=== PATIENT | male | born 1955 | race Two or more races ===

== ENCOUNTER 2019-12-13 13:20 | Inpatient (IN) | payer OTHER ==
[~2019-12-13] VITALS: Ht 167.6 cm; Wt 81.3 kg
[2019-12-13] MEDS ORDERED: SODIUM CHLORIDE 0.9% 1,000 ML IVB ONE (14:05)
[2019-12-13] MEDS ORDERED: ONDANSETRON HCL 4 MG/2 ML VIAL IV ONE (14:15)
[2019-12-13] MEDS ORDERED: MORPHINE SULFATE 4 MG/ML SYR/VIAL IV ONE (14:15)
[2019-12-13 14:25] LABS: Basophils # (auto) 0 uL; Basophils % (auto) 0.8 % (0.0-2.0); Eosinophils # (auto) 0.1 uL; Eosinophils % (auto) 2.3 % (0.0-7.0); Hematocrit 42.9 % (41.0-53.0); Hemoglobin 14.8 g/dL (13.5-17.5); Lymphocytes % (auto) 17.9 % (10.0-50.0); Mean Corpuscular Hemoglobin 30.9 pg (28.0-32.0); Mean Corpuscular Hgb Conc. 34.6 g/dL (32.0-36.0); Mean Corpuscular Volume 89.5 fL (80.0-100.0); Monocytes # (auto) 0.4 uL; Monocytes % (auto) 6.3 % (0.0-12.0); Neutrophils # (auto) 4.2 uL; Neutrophils % (auto) 72.7 % (37.0-80.0); Nucleated Red Blood Cells % 0.1 %; Platelet Count (auto) 157 10^3/uL (140-450); Red Blood Cells 4.79 10^6/uL (4.5-5.90); Red Cell Distribution Width 13.2 % (11.8-14.3); White Blood Cell 5.7 10^3/uL (4.4-10.8)
[2019-12-13 14:47] LABS: Albumin 3.3 g/dL (3.4-5.0); Anion Gap 1 (5-15); Blood Urea Nitrogen 19 mg/dL (7-18); Calcium 8.6 mg/dL (8.5-10.1); Carbon Dioxide 29 mmol/L (21-32); Chloride 106 mmol/L (98-107); Magnesium 2.5 mg/dL (1.6-2.6); Potassium 4.7 mmol/L (3.5-5.1); Sodium 136 mmol/L (136-145)
[2019-12-13 14:53] LABS: Alanine Aminotransferase 40 U/L (16-61); Alkaline Phosphatase 91 U/L (45-117); Aspartate Aminotransferase 19 U/L (15-37); BUN/Creatinine Ratio 17.3; Bilirubin, Total 0.4 mg/dL (0.2-1.0); GFR African American 87 mL/min; GFR Non-African American 72 mL/min; Total Protein 7.3 g/dL (6.4-8.2)
[2019-12-13 14:59] LABS: Glucose 405 mg/dL (74-106)
[2019-12-13] MEDS ORDERED: InsuLIN REG 1unit/0.01ml Soln (100units/ml) IV ONE (16:00)
[2019-12-13] MEDS ORDERED: NITROGLYCERIN 0.4 MG SL TAB SL PRN (16:45)
[2019-12-13] MEDS ORDERED: DEXTROSE (50%) 50ML SYRG IV PRN (16:45)
[2019-12-13] MEDS ORDERED: MORPHINE SULF INJ 2 MG/ML SYRINGE 1ML IV PRN (16:45)
[2019-12-13] MEDS ORDERED: SOD CHL 0.45% 1,000 ML IV SCH (17:00)
[2019-12-13] MEDS: ACCU-CHEK COMFORT CURVE STRIP VI SCH (17:23)
[2019-12-13] MEDS: InsuLIN REG 1unit/0.01ml Soln (100units/ml) SC SCH (17:23)
[2019-12-13] MEDS: SOD CHL 0.45% 1,000 ML IV SCH (19:41)
--- NOTE | 2019-12-13 20:00 | NUR ---
Telemetry admit from KIERA OROZCO admitted to Telemetry unit after SBAR received. Patient oriented to primary RN, unit, room, bed, and unit policies regarding patient care and visiting hours. Patient now on continuous telemetry monitoring, tele box #. Patient placed on bedside oxygen, weighed by bed scale and encouraged to call if they need something. All questions and concerns addressed, patient verbalized understanding. Assumed care of patient. No S/S of distress/SOB or pain. Bed locked in lowest position and bed rails x2. Call light within reach.
[2019-12-13 22:00] VITALS: BP 129/76
[2019-12-14] MEDS: ACCU-CHEK COMFORT CURVE STRIP VI SCH ×5 (00:33→22:38)
[2019-12-14 05:00] VITALS: BP 143/77
[2019-12-14] MEDS: InsuLIN REG 1unit/0.01ml Soln (100units/ml) SC SCH ×5 (06:00→22:38)
[2019-12-14] MEDS: SOD CHL 0.45% 1,000 ML IV SCH ×2 (06:18→14:32)
--- NOTE | 2019-12-14 06:31 | NUR ---
Insulin medication held d/t NPO status for procedure scheduled today
--- NOTE | 2019-12-14 07:30 | NUR ---
RECEIVED REPORT FROM NIGHT NURSE. PATIENT RESTING IN BED, SHACKLES TO BILATERAL ANKLES, HANDCUFF TO RIGHT WRIST. NO NOTED REDNESS AROUND WRIST OR ANKLES. GUARDS AT BEDSIDE. NO DISTRESS NOTED, WILL CONTINUE TO MONITOR.
[2019-12-14] MEDS ORDERED: ADENOSINE 67 MG in GIVE UN-DILUTED 0 ML IV STA (08:26)
[2019-12-14 09:00] VITALS: BP 146/91
[2019-12-14] MEDS ORDERED: LISINOPRIL 10 MG TAB PO ONE (10:00)
[2019-12-14] MEDS ORDERED: METOPROLOL TARTRATE 25 MG TAB PO ONE (10:00)
[2019-12-14] MEDS ORDERED: ATORVASTATIN 20 MG TAB PO ONE (10:00)
[2019-12-14] MEDS ORDERED: ASPirin 81 mg TAB PO ONE (10:00)
[2019-12-14] MEDS ORDERED: ENOXAPARIN SOD 40 MG/0.4 ML SYRINGE SC ONE (10:00)
[2019-12-14 13:00] VITALS: BP 136/72
[2019-12-14 17:00] VITALS: BP 137/83
--- NOTE | 2019-12-14 17:45 | NUR ---
DOCTOR ABIGAIL AT BEDSIDE.
--- NOTE | 2019-12-14 19:20 | NUR ---
Opening Shift Note Assumed care of patient. Patient is awake and alert with guards at bedside. Handcuffs in place with no s/s of skin impairment. No S/S of distress/SOB or pain. Instructed on POC and to call for assist PRN, will continue to monitor for changes Q1hr and PRN. Bed locked in lowest position and bed rails up x2. Call light within reach.
[2019-12-14 21:00] VITALS: BP 143/81
[2019-12-15] MEDS: SOD CHL 0.45% 1,000 ML IV SCH ×3 (02:00→22:21)
[2019-12-15 05:56] VITALS: BP 126/76
[2019-12-15] MEDS: InsuLIN REG 1unit/0.01ml Soln (100units/ml) SC SCH ×3 (06:00→17:58)
[2019-12-15] MEDS: ACCU-CHEK COMFORT CURVE STRIP VI SCH ×3 (06:00→17:53)
--- NOTE | 2019-12-15 07:20 | NUR ---
Opening Shift Note Report received and rounding completed. Patient observed resting in bed without s/s of distress noted. Guards at bedside. Will return hourly to monitor patient.
[2019-12-15 09:00] VITALS: BP 152/88
--- NOTE | 2019-12-15 10:15 | NUR ---
Dental Assistant Instructor Dr. Briana Diego to bedside discussing plan of care including angiogram tomorrow, NPO p MN, patient may shower, and cardiac home meds okay to be restarted.
[2019-12-15] MEDS ORDERED: CLOPIDOGREL 300 MG TAB PO ONE (10:30)
[2019-12-15] MEDS ORDERED: ASPirin 81 mg TAB PO ONE (10:30)
[2019-12-15 11:23] LABS: INR 1.02 (0.9-1.15)
[2019-12-15 13:00] VITALS: BP 133/74
[2019-12-15] MEDS ORDERED: ASPI-404 PO (15:57)
[2019-12-15] MEDS ORDERED: POM (15:57)
[2019-12-15] MEDS ORDERED: CARV3.1240 PO (15:57)
[2019-12-15] MEDS ORDERED: METF-912 PO (15:57)
[2019-12-15] MEDS ORDERED: ATO40T PO (15:57)
[2019-12-15] MEDS ORDERED: LISI10TA6 PO (15:57)
[2019-12-15] MEDS ORDERED: DULO20CA PO (15:57)
[2019-12-15 17:00] VITALS: BP 136/69
--- NOTE | 2019-12-15 19:35 | NUR ---
Opening Shift Note Report received from day shift RN. Assumed care of patient. Patient is awake and A&O x4 with guards at bedside. Handcuffs in place with no s/s of skin impairment noted. No S/S of distress/SOB noted and patient denies pain at this time. Bed locked in lowest position and bed rails up x2. Call light within reach. Instructed on POC and to call for assist PRN, will continue to monitor for changes Q1hr and PRN.
[2019-12-15 22:00] VITALS: BP 139/74
[2019-12-15] MEDS: CARVEDILOL 3.125 MG TAB PO SCH (22:00)
[2019-12-15] MEDS: ATORVASTATIN 20 MG TAB PO SCH (22:22)
--- NOTE | 2019-12-16 00:30 | NUR ---
UA collected and sent.
[2019-12-16] MEDS: ACCU-CHEK COMFORT CURVE STRIP VI SCH ×5 (00:36→23:52)
[2019-12-16 01:34] LABS: Urine Bacteria NONE SEEN /hpf (None Seen); Urine Blood Negative /uL (Negative); Urine Specific Gravity 1.012 (1.001-1.035); Urine WBC 1 /hpf (0 - 3)
[2019-12-16 05:42] VITALS: BP 136/80
[2019-12-16] MEDS: InsuLIN REG 1unit/0.01ml Soln (100units/ml) SC SCH ×5 (05:58→23:52)
[2019-12-16] MEDS ORDERED: LIDOCAINE 2%HCL (LOCAL ANESTH.) INJ 20ML MDV ONE ×2 (08:14→10:33)
[2019-12-16] MEDS ORDERED: IOHEXOL 350 MG/ML 100ML IJ ONE ×2 (08:14→10:49)
--- NOTE | 2019-12-16 08:32 | NUR ---
PT TAKEN TO TRANSIT SPECIALIST VIA BED. 2 GUARDS PRESENT. PT AOX4. DENIES PAIN.NO DISTRESS NOTED.
--- NOTE | 2019-12-16 09:15 | NUR ---
patient in procedure for 0900 vitals
[2019-12-16] MEDS ORDERED: MIDAZOLAM HCL 1MG/1ML-2 ML VIAL ONE (10:40)
[2019-12-16] MEDS ORDERED: fentaNYL CITRATE 100 MCG/2 ML VL ONE (10:40)
[2019-12-16] MEDS ORDERED: ANGIOMAX 250 MG VIAL IV ONE (10:40)
[2019-12-16] MEDS ORDERED: SODIUM CHL 0.9% 0 ML ONE (10:41)
[2019-12-16] MEDS: CARVEDILOL 3.125 MG TAB PO SCH ×2 (14:06→21:54)
[2019-12-16] MEDS: ASPirin 81 mg TAB PO SCH (14:06)
[2019-12-16] MEDS: LISINOPRIL 10 MG TAB PO SCH (14:07)
[2019-12-16] MEDS: CLOPIDOGREL BISULFATE 75 MG TAB PO SCH (14:07)
[2019-12-16] MEDS: SOD CHL 0.45% 1,000 ML IV SCH ×2 (14:08→18:00)
[2019-12-16 17:00] VITALS: BP 123/57
--- NOTE | 2019-12-16 19:20 | NUR ---
Opening Shift Note Report received from day shift RN. Assumed care of patient. Patient is awake and A&O x4 with guards at bedside. Handcuffs in place with no s/s of skin impairment noted. No S/S of distress/SOB noted and patient denies pain at this time. Right groin dressing C/D/I, site soft to touch with no s/s of hematoma formation. Pulses palpable and motor and sensation intact in lower extremities bilaterally. Bed locked in lowest position and bed rails up x2. Call light within reach. Instructed on POC and to call for assist PRN, will continue to monitor for changes Q1hr and PRN
[2019-12-16] MEDS: ATORVASTATIN 20 MG TAB PO SCH (21:54)
[2019-12-16 22:00] VITALS: BP 107/68
[2019-12-17 05:00] VITALS: BP 104/59
[2019-12-17] MEDS: ACCU-CHEK COMFORT CURVE STRIP VI SCH ×3 (05:43→18:22)
[2019-12-17] MEDS: InsuLIN REG 1unit/0.01ml Soln (100units/ml) SC SCH ×3 (05:43→18:22)
--- NOTE | 2019-12-17 07:30 | NUR ---
RECEIVED REPORT FROM NIGHT NURSE. PATIENT RESTING IN BED, NO DISTRESS NOTED. BREATHING EVEN AND UNLABORED. SHACKLES TO BILATERAL ANKLES, HANDCUFF TO RIGHT WRIST, NO NOTED REDNESS TO ANKLES OR WRIST. GUARDS AT BEDSIDE. WILL CONTINUE TO MONITOR.
[2019-12-17 09:00] VITALS: BP 101/57
[2019-12-17] MEDS: ASPirin 81 mg TAB PO SCH (09:54)
[2019-12-17] MEDS: CLOPIDOGREL BISULFATE 75 MG TAB PO SCH (09:55)
[2019-12-17] MEDS: LISINOPRIL 10 MG TAB PO SCH (11:53)
[2019-12-17] MEDS: CARVEDILOL 3.125 MG TAB PO SCH ×2 (11:53→22:39)
[2019-12-17 13:00] VITALS: BP 132/73
[2019-12-17 17:00] VITALS: BP 118/68
[2019-12-17] MEDS: ATORVASTATIN 20 MG TAB PO SCH (22:39)
[2019-12-17 23:51] VITALS: BP 110/65
[2019-12-18] MEDS: ACCU-CHEK COMFORT CURVE STRIP VI SCH ×4 (00:26→18:07)
[2019-12-18] MEDS: InsuLIN REG 1unit/0.01ml Soln (100units/ml) SC SCH ×4 (00:26→18:07)
[2019-12-18 05:22] VITALS: BP 118/69
--- NOTE | 2019-12-18 07:14 | NUR ---
Opening Shift Note Assumed care of patient, awake and alert. No S/S of distress/SOB or pain. Insructed on POC and to callfor assist PRN, will continue to monitor for changes Q1hr and PRN.
--- NOTE | 2019-12-18 08:51 | NUR ---
MD CALVILLO CARDIAC SURGEON ROUNDED ON PATIENT FEELS HE NEEDS THE SURGERY BUT IS A HIGHER ACUITY THAN THIS HOSPITAL HE STATED HE WILL NOTIFY MD JUNIOR AND MD HAYES
[2019-12-18] MEDS: ASPirin 81 mg TAB PO SCH (08:57)
[2019-12-18] MEDS: CARVEDILOL 3.125 MG TAB PO SCH ×2 (08:58→22:00)
[2019-12-18] MEDS: LISINOPRIL 10 MG TAB PO SCH (08:58)
[2019-12-18] MEDS: ENOXAPARIN SOD 40 MG/0.4 ML SYRINGE SC SCH (08:59)
[2019-12-18 09:00] VITALS: BP 135/77
[2019-12-18 13:00] VITALS: BP 110/64
--- NOTE | 2019-12-18 14:31 | NUR ---
MD Briana JUNIOR ROUNDED ON PATIENT HE AGREES WITH TRANSFER TO A HIGHER LEVEL OF CARE
--- NOTE | 2019-12-18 15:58 | NUR ---
NUTRITION ASSESSMENT NOTES Please refer to link notes of nutrition screen form filed under the intervention section of the plan of care for further details. Est. Needs: 1650 kcal to 2050 kcal (20-25 kcal/kgBW), 65 gms to 81 gms pro (0.8-1.0 gms/kgBW). Will continue to monitor pertinent labs and reassess nutrient need prn Thank you. Addendum: 12/18/19 at [address] Amended: Links added.
[2019-12-18 16:57] VITALS: BP 121/81
--- NOTE | 2019-12-18 19:30 | NUR ---
Opening Shift Note Assumed care of patient, awake and alert. No S/S of distress/SOB or pain.Stateless speaking. Able to make needs known. Instructed on POC and to call for assist PRN, will continue to monitor for changes Q1hr and PRN
[2019-12-18 20:00] VITALS: BP 110/64
[2019-12-18 22:00] VITALS: BP 128/72
[2019-12-18] MEDS: ATORVASTATIN 20 MG TAB PO SCH (22:00)
[2019-12-19 05:12] VITALS: BP 109/59
[2019-12-19] MEDS: InsuLIN REG 1unit/0.01ml Soln (100units/ml) SC SCH ×4 (06:00→18:17)
[2019-12-19] MEDS: ACCU-CHEK COMFORT CURVE STRIP VI SCH ×4 (06:14→18:16)
--- NOTE | 2019-12-19 07:30 | NUR ---
Opening Shift Note Assumed care of patient, who is alert and oriented x4. No S/S of distress/SOB or pain. Dressing to the right groin is clean, dry and intact with no hematoma or tenderness noted. IV is patent and intact. Bed is low, locked with 2x side rails up. Call light within reach. Instructed on POC and to call for assist PRN, will continue to monitor for changes Q1hr and PRN.
[2019-12-19 09:00] VITALS: BP 119/70
[2019-12-19] MEDS: CARVEDILOL 3.125 MG TAB PO SCH ×2 (09:46→22:54)
[2019-12-19] MEDS: ASPirin 81 mg TAB PO SCH (09:46)
[2019-12-19] MEDS: LISINOPRIL 10 MG TAB PO SCH (09:47)
[2019-12-19] MEDS: ENOXAPARIN SOD 40 MG/0.4 ML SYRINGE SC SCH (09:47)
[2019-12-19 13:00] VITALS: BP 130/70
--- NOTE | 2019-12-19 14:29 | NUR ---
I called [facility] [phone] and left message for house builder asking about this transfer request.
--- NOTE | 2019-12-19 14:55 | NUR ---
Dr. Haleigh Ricardo, physician from the skilled nursing facility called and asked for update on patient's status. I let him know that this patient has a transfer to [facility] pending (see social service note). He stated if this nurse or oncoming nurse needed anything to please call him at
[2019-12-19 17:00] VITALS: BP 136/73
--- NOTE | 2019-12-19 19:00 | NUR ---
OPENING NOTE- NOC SHIFT PATIENT IS ALERT AND ORIENTED. NO S/SX OF DISTRESS, SOB OR PAIN. PATIENT IS AN INMATE, 2 GUARDS AT BEDSIDE. BED IS LOCKED AT LOWEST, BED RAILS UP X2 AND HEAD OF BED IS UP >30 DEGREES FOR SAFETY PRECAUTIONS. BEDSIDE TABLE, CALL LIGHT WITHIN REACH. PATIENT HAS SHACKLES TO BOTH ANKLES AND LEFT WRIST TO BED. NO REDNESS ON SKIN AT SHACKLE SITES. WILL CONTINUE TO MONITOR Q1H AND PRN. PATIENT IS REQUESTING SHOWER. DR HOUSE AWARE AND AGREES OK TO SHOWER. WILL PROVIDE MATERIALS NEEDED AND COVER IV SITE.
--- NOTE | 2019-12-19 20:36 | NUR ---
PATIENT SHOWERING TELE BOX OFF AND IV WRAPPED PROPERLY FOR SHOWER. TELE MONITOR TECHS AWARE THAT PATIENT IS OFF TELE FOR SHOWER.
[2019-12-19 22:00] VITALS: BP 151/86
[2019-12-19] MEDS: ATORVASTATIN 20 MG TAB PO SCH (22:54)
[2019-12-20] MEDS: ACCU-CHEK COMFORT CURVE STRIP VI SCH ×4 (00:55→18:00)
[2019-12-20] MEDS: InsuLIN REG 1unit/0.01ml Soln (100units/ml) SC SCH ×4 (00:55→18:05)
[2019-12-20 05:00] VITALS: BP 108/73
--- NOTE | 2019-12-20 07:32 | NUR ---
ENDORSED PATIENT CARE TO DAY SHIFT NURSE EAN REEDER. NO S/SX OF DISTRESS OR SOB.
--- NOTE | 2019-12-20 08:00 | NUR ---
Opening Shift Note Assumed care of patient, awake and alert. No S/S of distress/SOB or pain. Awaiting bed availability at [facility]. Instructed on POC and to call for assist PRN, will continue to monitor for changes Q1hr and PRN.
--- NOTE | 2019-12-20 08:25 | NUR ---
I called [facility] Director Of Quality Elyssa [phone] and left a message asking for assistance with the transfer of this patient to [facility].
--- NOTE | 2019-12-20 08:48 | NUR ---
I called [facility] [phone] and spoke with scalehouse attendant Edgardo, she is aware of the need to transfer this patient and that Dr. Alejandro is accepting. Faxed requested clinical information to her [phone]-she will give me a call back regarding bed availability. I let her know that I had contacted Elyssa at [facility] and was waiting for a return phone call.
[2019-12-20 09:00] VITALS: BP 139/82
[2019-12-20] MEDS: CARVEDILOL 3.125 MG TAB PO SCH ×2 (10:00→21:45)
[2019-12-20] MEDS: ASPirin 81 mg TAB PO SCH (10:05)
[2019-12-20] MEDS: LISINOPRIL 10 MG TAB PO SCH (10:06)
[2019-12-20] MEDS: ENOXAPARIN SOD 40 MG/0.4 ML SYRINGE SC SCH (10:06)
[2019-12-20 13:00] VITALS: BP 114/68
--- NOTE | 2019-12-20 13:24 | NUR ---
I called [facility] Pole Maker Elyssa (no return call from previous message I left)[phone]-left a second message asking for assistance in transferring this patient to [facility].
--- NOTE | 2019-12-20 14:57 | NUR ---
I called the [facility] and spoke with Dr. Payne [phone] regarding the transfer to [facility]. Per Dr. Payne, when [facility] has a bed, the nurse here will notify the guards at the bedside and those guards will set up transportation.
[2019-12-20 17:00] VITALS: BP 133/72
--- NOTE | 2019-12-20 19:00 | NUR ---
OPENING NOTE- NOC SHIFT PATIENT IS ALERT AND ORIENTED. NO S/SX OF DISTRESS, SOB OR PAIN. PATIENT IS AN INMATE, 2 GUARDS AT BEDSIDE. BED IS LOCKED AT LOWEST, BED RAILS UP X2 AND HEAD OF BED IS UP >30 DEGREES FOR SAFETY PRECAUTIONS. BEDSIDE TABLE, CALL LIGHT WITHIN REACH. PATIENT HAS SHACKLES TO BOTH ANKLES AND LEFT WRIST TO BED. NO REDNESS ON SKIN AT SHACKLE SITES. WILL CONTINUE TO MONITOR Q1H AND PRN.
[2019-12-20] MEDS: ATORVASTATIN 20 MG TAB PO SCH (21:45)
[2019-12-20 22:00] VITALS: BP 135/81
[2019-12-21] MEDS: ACCU-CHEK COMFORT CURVE STRIP VI SCH ×4 (00:35→17:36)
[2019-12-21] MEDS: InsuLIN REG 1unit/0.01ml Soln (100units/ml) SC SCH ×4 (00:35→17:36)
[2019-12-21 05:00] VITALS: BP 127/69
--- NOTE | 2019-12-21 06:45 | NUR ---
CLOSING NOTE- NOC SHIFT PATIENT IS COMFORTABLE IN BED. NO S/SX OF DISTRESS OR SOB. PATIENT DENIES PAIN AT THIS TIME. WILL ENDORSE CARE TO DAY SHIFT RN.
--- NOTE | 2019-12-21 08:00 | NUR ---
Opening Shift Note Assumed care of patient, awake and alert. No S/S of distress/SOB or pain. Still for transfer to [facility] as soon as bed is available. Instructed on POC and to call for assist PRN, will continue to monitor for changes Q1hr and PRN.
[2019-12-21 08:46] VITALS: BP 118/66
[2019-12-21] MEDS: ENOXAPARIN SOD 40 MG/0.4 ML SYRINGE SC SCH (09:34)
[2019-12-21] MEDS: LISINOPRIL 10 MG TAB PO SCH (09:35)
[2019-12-21] MEDS: ASPirin 81 mg TAB PO SCH (09:35)
[2019-12-21] MEDS: CARVEDILOL 3.125 MG TAB PO SCH ×2 (09:37→21:41)
[2019-12-21 12:18] VITALS: BP 116/64
--- NOTE | 2019-12-21 14:32 | NUR ---
1430 Called [facility] [phone] and left message for hotel houseman asking for an update on the status of the transfer for this patient/bed availability.
[2019-12-21 17:29] VITALS: BP 111/66
--- NOTE | 2019-12-21 19:30 | NUR ---
OPENING SHIFT NOTE Assumed care of patient, awake and alert x 4. Guards noted at the bedside. Patient denies pain or shortness of breath at this time. Instructed on plan of care and to call for assistance as needed, patient verbalized understanding. Bed is locked in lowest position, side rails x 2 are up, call light is within reach, and bed alarm is on.
[2019-12-21] MEDS: ATORVASTATIN 20 MG TAB PO SCH (21:41)
[2019-12-21 22:00] VITALS: BP 114/62
[2019-12-22] MEDS: ACCU-CHEK COMFORT CURVE STRIP VI SCH ×5 (00:29→23:44)
[2019-12-22] MEDS: InsuLIN REG 1unit/0.01ml Soln (100units/ml) SC SCH ×5 (00:30→23:44)
[2019-12-22 05:00] VITALS: BP 102/59
--- NOTE | 2019-12-22 05:45 | NUR ---
IV INSERTION IV access obtained, via clean sterile technique by inserting 22 gauge catheter at right forearm after 1 attempt. IV secured properly. No trauma to site. Patient tolerated well.
--- NOTE | 2019-12-22 05:50 | NUR ---
IV REMOVAL IV DC'd to left forearm per infectious control policy. IV DC'd with clean sterile technique, catheter fully intact. Pressure dressing applied to site. Patient tolerated well.
[2019-12-22 08:56] VITALS: BP 114/65
--- NOTE | 2019-12-22 09:02 | NUR ---
I called [facility] [phone] and spoke with house mover Sakshi-she will call me back regarding bed availability. I also received a message from Monica at [facility] [phone] letting me know that they are not contracted with [facility] and to try [facility], [facility] and [facility]. I called Monica back and left message letting her know that those 3 facilities do not perform open heart surgery. Monica returned my call and stated that she spoke with her josefina department and they stated that the patient is fine to go to [facility].
--- NOTE | 2019-12-22 09:45 | NUR ---
I received a call from Sakshi-warehouse shipping supervisor [phone]-she stated they do not have a contract with [facility]. I asked Sakshi if they would be able to do an GABRIEL with [facility], she will speak with her director and give me a call back.
[2019-12-22] MEDS: ENOXAPARIN SOD 40 MG/0.4 ML SYRINGE SC SCH (09:55)
[2019-12-22] MEDS: CARVEDILOL 3.125 MG TAB PO SCH ×2 (09:55→21:52)
[2019-12-22] MEDS: ASPirin 81 mg TAB PO SCH (09:56)
[2019-12-22] MEDS: LISINOPRIL 10 MG TAB PO SCH (09:56)
--- NOTE | 2019-12-22 10:27 | NUR ---
I received a message from Loishousefellow at [facility] ([phone])letting me know that the person to speak with in their josefina department regarding a possible GABRIEL is Yanira Forde [phone] extension [phone]. I called Monica at [facility] ([phone]) and relayed this information to her-she will forward the information to her josefina department and give me a call back.
--- NOTE | 2019-12-22 11:59 | NUR ---
I received a message from Monica at [facility] letting me know that patient is now authorized to go to [facility]. I called [facility] [phone] and left message for bottle house pumper Sakshi asking about bed availability.
[2019-12-22 13:00] VITALS: BP 117/70
--- NOTE | 2019-12-22 15:17 | NUR ---
I received a call from [facility] boiler house supervisor Sakshi letting me know that Dr. Alejandro is a consulting physician for this patient but that we need an accepting hospitalist. She provided me with their hospitalist cell phone number [phone]-I called Dr. Skaggs and gave him this contact information.
[2019-12-22 17:00] VITALS: BP 129/71
[2019-12-22] MEDS: ATORVASTATIN 20 MG TAB PO SCH (21:52)
[2019-12-22 22:00] VITALS: BP 126/69
--- NOTE | 2019-12-23 02:46 | NUR ---
CARE ENDORSED TO ONCOMING EAN PENA
--- NOTE | 2019-12-23 03:05 | NUR ---
OPENING SHIFT NOTES Assumed care of patient from hotel night auditor RN. Patient is asleep in bed, no signs of distress noted, chest rise and fall is symmetrical. Patient is an inmate, 2 guards at bedside. Bed is locked, in the lowest position, side rails upx2 and call light is in reach. Will continue to monitor q1h and PRN.
[2019-12-23 05:00] VITALS: BP 126/70
[2019-12-23] MEDS: InsuLIN REG 1unit/0.01ml Soln (100units/ml) SC SCH ×4 (06:00→22:58)
[2019-12-23] MEDS: ACCU-CHEK COMFORT CURVE STRIP VI SCH ×4 (06:15→22:56)
--- NOTE | 2019-12-23 08:36 | NUR ---
I received a message from Loislive in housekeeper at [facility] asking if we found an accepting hospitalist. I called her back [phone] and left message letting her know that I had provided the hospitalist cell phone number ([phone]) to Dr. Skaggs yesterday. I also received a message from Monica at [facility] ([phone]) asking for an update on the status of the transfer-I let her know that same-that I contacted Dr. Skaggs yesterday and provided him with the phone number to find an accepting hospitalist.
[2019-12-23 09:00] VITALS: BP_SYST 116; BP_SYST 143; BP_DIAS 67; BP_DIAS 81
[2019-12-23] MEDS: CARVEDILOL 3.125 MG TAB PO SCH ×2 (10:06→22:01)
[2019-12-23] MEDS: ASPirin 81 mg TAB PO SCH (10:06)
[2019-12-23] MEDS: LISINOPRIL 10 MG TAB PO SCH (10:06)
[2019-12-23] MEDS: ENOXAPARIN SOD 40 MG/0.4 ML SYRINGE SC SCH (10:06)
[2019-12-23 13:00] VITALS: BP 124/81
[2019-12-23 17:00] VITALS: BP 153/82
--- NOTE | 2019-12-23 19:30 | NUR ---
CLOSING SHIFT NOTE Care endorsed to firer tunnel kiln RN.
--- NOTE | 2019-12-23 19:35 | NUR ---
Opening Shift Note Assumed care of patient, awake and alert. No S/S of distress/SOB or pain. Instructed on POC and to call for assist PRN, will continue to monitor for changes Q1hr and PRN.
[2019-12-23 21:00] VITALS: BP 119/68
[2019-12-23] MEDS: ATORVASTATIN 20 MG TAB PO SCH (22:01)
[2019-12-24 05:00] VITALS: BP 111/62
[2019-12-24] MEDS: InsuLIN REG 1unit/0.01ml Soln (100units/ml) SC SCH ×3 (06:00→17:12)
[2019-12-24] MEDS: ACCU-CHEK COMFORT CURVE STRIP VI SCH ×3 (06:56→17:11)
--- NOTE | 2019-12-24 08:00 | NUR ---
Patient in bed, awake, oriented x4, no acute distress noted. Male security at bedside.
[2019-12-24 09:00] VITALS: BP 109/65
[2019-12-24] MEDS: LISINOPRIL 10 MG TAB PO SCH (09:59)
[2019-12-24] MEDS: ENOXAPARIN SOD 40 MG/0.4 ML SYRINGE SC SCH (09:59)
[2019-12-24] MEDS: ASPirin 81 mg TAB PO SCH (09:59)
[2019-12-24] MEDS: CARVEDILOL 3.125 MG TAB PO SCH ×2 (09:59→22:00)
[2019-12-24 12:56] VITALS: BP 121/67
--- NOTE | 2019-12-24 14:50 | NUR ---
April Pineda at bedside. sent a message to [facility] to follow up the patient's transfer.
--- NOTE | 2019-12-24 15:52 | NUR ---
NUTRITION ASSESSMENT NOTES Pt wt is 81.6 kg today Pt was awake with guards present when rounded this morning. Pt noted no distress or complaints, doing well. Pt appetite is good aeb ave 88% x4 PO intake per RN doc. Please refer to dietary recommendations noted below. Will follow up prn Est. Needs: 1650 kcal to 2050 kcal (20-25 kcal/kgBW), 65 gms to 81 gms pro (0.8-1.0 gms/kgBW). Will continue to monitor pertinent labs and reassess nutrient need prn LABS : All labs WNL GI: date of last BM on 12/24/19 per RN doc BS: 20 low risk, rt groin incision , clean, dry per RN doc PES: Altered nutrition related lab values RT acute/chronic medical condition AEB hyperglycemia, elev BUN and mild hypoalbuminemia Comments Will continue to monitor PO intake, pertinent labs, skin status and weight trends. F/u in 3 to 5 days. Additional Recommendation: 1.) Consider to check HbA1c, if gluc leve remains consistently elev. w/ elev. HbA1c, consider Consistent Standard Carb: 60 gms/meal, Cardiac: 2 gms Na, Low Chol, Low Fat diet. 2.) Continue close supervision with meals. 3.) Refer to RD for further nutrition educ. and weight monitoring upon discharge. 4.) Continue current plan of care.
[2019-12-24 16:38] VITALS: BP 116/69
--- NOTE | 2019-12-24 17:38 | NUR ---
Re: Transfer Per Sakshi, sample case porter [facility], patient has been accepted by Dr. Calvin and Dr. Alejandro. Bed is available. May transfer patient post 1900. Report to be called at Ext. [phone]. Room 656.
--- NOTE | 2019-12-24 17:47 | NUR ---
Re: Transfer Must send complete copy of chart along with radiology disc.
--- NOTE | 2019-12-24 17:57 | NUR ---
Called Jovanni Mccauley. Parisa said inform the male guards to call long-term to provide transportation for patient's transfer to [facility] after 7:00 pm servando.
--- NOTE | 2019-12-24 17:58 | NUR ---
Jovanni Mccauley said the report has to be called in by the shift commander RN to [facility] after 7:00 pm tonight. Notes: Report to be called in at [phone] Ext. [phone]. Room 656. Accepting MDs Dr. Calvin and Dr. Alejandro.
--- NOTE | 2019-12-24 18:01 | NUR ---
Informed the patient's two male guards that they have to call the detention for transportation be available after 7:00 pm tonight to transfer the patient to [facility].
--- NOTE | 2019-12-24 18:44 | NUR ---
Endorsed to maintenance technician 3rd shift RN to call for report to [facility] ([phone] ext. [phone]), accepting MDs Dr. Calvin and Dr. Alejandro, Room 656, Half-Way to provide transportation to transfer the patient to [facility] after 7:00 pm.
--- NOTE | 2019-12-24 19:35 | NUR ---
Opening Shift Note Report received from day shift RN. Assumed care of patient, awake and A&O x4. No S/S of distress/SOB noted and patient denies pain at this time. Patient left hand handcuffed and s/s of skin breakdown to the area. Instructed on POC and to call for assist PRN, will continue to monitor for changes Q1hr and PRN.
--- NOTE | 2019-12-24 21:10 | NUR ---
[facility] CALLED [facility] TO SET UP PATIENT TRANSPORT TO [facility]. ETA OF AROUND 2 HOURS GIVEN FOR ALS TRANSPORT. CALL BACK INFORMATION PROVIDED TO [facility] JINRIKSHA DRIVER. PER JINRIKSHA DRIVER SHE WILL CALL BACK IN APPROXIMATELY 2 HOURS WITH AN UPDATE.
[2019-12-24 21:38] VITALS: BP 121/67
[2019-12-24] MEDS: ATORVASTATIN 20 MG TAB PO SCH (22:29)
[2019-12-25] MEDS: ACCU-CHEK COMFORT CURVE STRIP VI SCH (00:17)
[2019-12-25] MEDS: InsuLIN REG 1unit/0.01ml Soln (100units/ml) SC SCH (00:18)
--- NOTE | 2019-12-25 01:34 | NUR ---
[facility] CONTACTED FOR UPDATE ON ETA, NO ETA GIVEN AT THIS TIME DUE TO HIGH CALL VOLUMES AT THIS TIME.
--- NOTE | 2019-12-25 02:48 | NUR ---
[facility] ARRIVED TO TRANSFER PATIENT TO [facility]. NO S/S OF SOB OR DISTRESS NOTED AT THIS TIME. VSS. PATIENT DENIES PAIN. TELE BOX COLLECTED AND SENT TO MONITOR TECHS.
== END 2019-12-25 02:55 | disposition short-term general hospital (02) | DRG 287 ==
LOC: ER 13:20 → EDBD 13:20 → TELE 13:21 → EEVIPCON 13:21 → TELE-E-ADS 19:58
PROVIDERS: ADMIT Internal Medicine; ATTEND Internal Medicine
PROC: B41F1ZZ Fluoroscopy of Right Lower Extremity Arteries using Low Osmolar Contrast (ICD-10-PCS; principal; 2019-12-16)
PROC: 4A023N8 Measurement of Cardiac Sampling and Pressure, Bilateral, Percutaneous Approach (ICD-10-PCS; 2019-12-16)
PROC: B2111ZZ Fluoroscopy of Multiple Coronary Arteries using Low Osmolar Contrast (ICD-10-PCS; 2019-12-16)
PROC: B2161ZZ Fluoroscopy of Right and Left Heart using Low Osmolar Contrast (ICD-10-PCS; 2019-12-16)
DX: I25.10 Atherosclerotic heart disease of native coronary artery without angina pectoris (principal); I24.9 Acute ischemic heart disease, unspecified; I25.2 Old myocardial infarction; I25.5 Ischemic cardiomyopathy; E78.5 Hyperlipidemia, unspecified; E11.65 Type 2 diabetes mellitus with hyperglycemia; I10 Essential (primary) hypertension; F32.9 Major depressive disorder, single episode, unspecified; Z83.3 Family history of diabetes mellitus; Z95.5 Presence of coronary angioplasty implant and graft
CPT/HCPCS: 36415; 71045; 75710; 78452; 80053; 81001; 82962; 83735; 83880; 84484; 85025; 85379; 85610; 86850; 86900; 86901; 93005; 93017; 93460; 96361; 96374; 96375; 99152; 99153; C1751; G0378; J0153; J1815; J2250; J2405